=== PATIENT | male | born 1995 | race Caucasian/White ===

== ENCOUNTER 2021-12-08 10:09 | Emergency (ER) | payer BC ==
[2021-12-08 11:36] LABS: HEMOGLOBIN 16.1 gm/dl (14.0-17.5); RED BLOOD COUNT 5.56 M/UL (4.20-5.50); WHITE BLOOD COUNT 6.1 K/UL (4.5-11.0)
[2021-12-08 12:00] LABS: BUN/CREATININE RATIO 8 (0-10)
[2021-12-08] MEDS ORDERED: BENTYL 20MG TAB20 MG PO (12:32)
== END 2021-12-08 13:51 | disposition home or self-care (01) ==
LOC: ER1 10:09
PROVIDERS: Physician Assistant
DX: R10.31 Right lower quadrant pain (principal); R19.7 Diarrhea, unspecified; R10.813 Right lower quadrant abdominal tenderness
CPT/HCPCS: 80053; 81001; 85025; 99284; Q9967

== ENCOUNTER 2021-12-21 17:34 | Emergency (ER) | payer BC ==
[~2021-12-21 17:34] MED LIST: BENTYL 20MG TAB20 MG PO
[2021-12-21 19:59] LABS: HEMOGLOBIN 16.1 gm/dl (14.0-17.5); RED BLOOD COUNT 5.58 M/UL (4.20-5.50); WHITE BLOOD COUNT 7.7 K/UL (4.5-11.0)
[2021-12-21 20:10] LABS: BUN/CREATININE RATIO 11 (0-10)
[2021-12-21] MEDS ORDERED: ZOFRAN 4 MG TAB4 MG PO (20:50)
[2021-12-21] MEDS ORDERED: IBUPROFEN800 MG PO (20:50)
== END 2021-12-21 21:03 | disposition home or self-care (01) ==
LOC: ER1 17:34
PROVIDERS: Preventive Medicine Occupational Medicine
DX: G89.29 Other chronic pain (principal); R10.31 Right lower quadrant pain
CPT/HCPCS: 80053; 81001; 83690; 85025; 85652; 86140; 87086; 99284

== ENCOUNTER → 2022-01-09 | Outpatient (CLI) | payer BC ==
[~2022-01-09] MED LIST changes: +IBUPROFEN800 MG PO; +ZOFRAN 4 MG TAB4 MG PO
== END ==
LOC: KOH-I 10:27
DX: R10.31 Right lower quadrant pain (principal)
CPT/HCPCS: 76705